=== PATIENT | male | born 1980 | race Caucasian/White ===

== ENCOUNTER 2018-04-07 18:10 | Inpatient (IN) | payer OTHER ==
[~2018-04-07] VITALS: Ht 182.9 cm; Wt 92.7 kg
[2018-04-07 18:18] VITALS: BP 149/106
--- NOTE | 2018-04-07 18:27 | NUR ---
BUNNY BARNETT, PLACED IN ROOM 1, REPORTS GIVEN TO CAROLYN JOYCE
--- NOTE | 2018-04-07 18:30 | NUR ---
PATIENT BIBA FROM HOME WITH SOB, anxiety. ST at scene. admits to taking 1.75ml vodka. also with c/o intermittent substernal chest pain 7/10. sl inserted 1L ns infusing. Asa 325mg given en route, btg 1 sl given, pain decrarsed from 7 to 5. 12 lead done, st , no ectopy. DENIES N/V/D; SKIN IS PINK/WARM/DRY; AAOX4; LUNGS CLEAR BL; ST NOTED, PT DENIES ANY FEVER, PATIENT STATES PAIN OF 5/10 AT THIS TIME; VSS; PATIENT POSITIONED FOR COMFORT; HOB ELEVATED; BEDRAILS UP X2; BED DOWN. ER MD MADE AWARE OF PT STATUS.
--- NOTE | 2018-04-07 18:42 | NUR ---
PT C/O CHEST PAIN IS BACK, 03/25, DR. BOUCHER MADE AWARE.
[2018-04-07] MEDS ORDERED: DICYCLOMINE HCL LIQUID 20 MG, ALUMINUM HYD/MAG/SIMETHICONE 30 ML, LIDOCAINE VISCOUS 2% ... PO ONE ×3 (19:05)
[2018-04-07] MEDS ORDERED: NACL 0.9% 2,000 ML IV ONE (19:05)
[2018-04-07] MEDS ORDERED: LORazepam 2 MG/ML VIAL IVP ONE (19:05)
--- NOTE | 2018-04-07 19:09 | NUR ---
REPORT GIVEN TO ELEMENTARY SECRETARY NURSE FOR CONTINUE OF CARE.
--- NOTE | 2018-04-07 19:10 | NUR ---
RECEIVED REPORT FROM AM NURSE. PT SITTING ON L SIDE IN BED, PT REPORTS 7/10 PAIN AT THIS TIME, RELIEVED BY POSITIONING. WILL ADMINISTER MEDS AT ORDERED WITH EDUCATION.
--- NOTE | 2018-04-07 19:10 | NUR ---
Yane newsome in [facility] - 04/07/18 at 2023 by SAVANA MALU
[2018-04-07 19:49] LABS: HEMATOCRIT 37.9 % (36-52); HEMOGLOBIN 12.5 g/dL (12.0-18.0); MEAN CORPUSCULAR HEMOGLOBIN 30 pg (27-31); MEAN CORPUSCULAR VOLUME 90.7 fL (80-94); RED BLOOD CELL COUNT(AUTO) 4.18 MIL/uL (4.20-6.10); WHITE BLOOD COUNT (AUTO) 4.6 K/uL (4.8-10.8)
[2018-04-07 19:50] LABS: BASOPHILS # (AUTO) 0.3 K/uL (0.00-0.22); LYMPHOCYTES # (AUTO) 0.8 K/uL (2.0-11.5); MEAN CORPUSCULAR HGB CONC 33 g/dL (33-37); MONOCYTES # (AUTO) 0.7 K/uL (0.8-1.0); NEUTROPHILS # (AUTO) 2.8 K/uL (1.8-7.7); PLATELET COUNT (AUTO) 187 K/uL (140-450); RED CELL DISTRIBUTION WIDTH 13.8 % (11.6-13.7)
--- NOTE | 2018-04-07 20:10 | NUR ---
PT RESTING IN BED, VSS, PT REPORTS 3/10 PAIN AT THIS TIME, ALL NEEDS MET AT THIS TIME.
[2018-04-07] MEDS ORDERED: KETOROLAC 30 MG/ML VIAL IVP ONE (20:55)
[2018-04-07 21:08] LABS: CARBON DIOXIDE 27.4 mmol/L (21-32)
[2018-04-07 21:09] LABS: CREATININE 0.7 mg/dL (0.7-1.3); TOTAL BILIRUBIN 0.9 mg/dL (0.0-1.0)
[2018-04-07 21:10] LABS: ALBUMIN 3.6 g/dL (3.4-5.0)
[2018-04-07 21:12] LABS: ANION GAP 13.5 (8-16); POTASSIUM 2.9 mmol/L (3.5-5.1)
[2018-04-07] MEDS ORDERED: KCL 20 MEQ/WATER INJ PREMIX 100 ML IV ONE (21:40)
[2018-04-07 21:47] LABS: CREATINE KINASE MB 0.6 ng/mL (0-3.6)
[2018-04-07] MEDS ORDERED: LORazepam 2 MG/ML VIAL IVP PRN (21:50)
[2018-04-07] MEDS: POTASSIUM CHL 20MEQ/D5-NS 1,000 ML IV SCH (22:00)
--- NOTE | 2018-04-07 22:00 | NUR ---
PT GIVEN SANDWICH AND SNACKS, OK PER MD
[2018-04-07] MEDS ORDERED: LISI2.5T12 PO (22:22)
--- NOTE | 2018-04-07 22:41 | NUR ---
PT ARRIVED ON UNIT VIA GURNEY WITH 2 ER NURSES. PT IN STABLE CONDITION. PT IS A/O X4. PT ON RA. SKIN IS INTACT. IV ACCESS IN R HAND 20G. IV IS PATENT AND INTACT. POTASSIUM CURRENTLY INFUSING. PT C/O OF SOME CHEST PAIN BUT DOES NOT REQUEST ANY PAIN MEDICATION AT THIS TIME. VS ARE WITHIN NORMAL LIMITS. ORIENTATED PT TO ROOM AND USE OF CALL LIGHT. BED IS LOCKED, LOWEST POSITION AND SIDE RAILS UP X2. WILL CONTINUE TO MONITOR PT.
--- NOTE | 2018-04-07 22:48 | NUR ---
Patient will be admitted to care of DR. DEXTER. Admited to TELE. Will go to room 105A. Belongings list completed. Report to CAROLYN STOLL AT BEDSIDE.
[2018-04-07] MEDS: ONDANSETRON 4 MG/2 ML VIAL IVP PRN (23:36)
--- NOTE | 2018-04-07 23:36 | NUR ---
PT C/O OF NAUSEA, ZOFRAN ADMINISTERED PER MD ORDER.
[2018-04-07] MEDS: MORPHINE SULFATE 2 MG/ML SYR IVP PRN (23:37)
[2018-04-08] VITALS: BP 137/90
[2018-04-08 00:10] LABS: BARBITURATE, URINE NEGATIVE ng/ml (NEG <=200); BENZODIAZEPINE, URINE NEGATIVE ng/mL (NEG <=200); CANNABINOID, URINE NEGATIVE ng/mL (NEG <=50); COCAINE, URINE NEGATIVE ng/mL (NEG <=300); OPIATE, URINE NEGATIVE ng/mL (NEG <=2000); PHENCYCLIDINE SCREEN,URINE NEGATIVE ng/mL (NEG <=25)
[2018-04-08] MEDS ORDERED: THIAMINE 200 MG/2 ML VIAL ONE ×2 (00:40→00:54)
[2018-04-08] MEDS ORDERED: MULTIVITAMIN-12 10 ML VIAL IV ONE ×2 (00:40→00:54)
[2018-04-08] MEDS ORDERED: FOLIC ACID 5 MG/ML SYR ONE (00:54)
[2018-04-08] MEDS ORDERED: MAG SULF 2000 MG/WATER PREMIX 50 ML IV ONE ×2 (00:59→11:25)
[2018-04-08] MEDS: MULTIVITAMIN-12 10 ML, THIAMINE 100 MG, MAGNESIUM SULFATE 50% 2,000 MG, FOLIC ACID 1 MG... IV SCH ×10 (01:28→23:57)
--- NOTE | 2018-04-08 01:28 | NUR ---
BANANA BAG STARTED AT 100ML/HR WILL BE COMPLETED AT 1128. PT TOLERATING WELL. WILL CONTINUE TO MONITOR.
[2018-04-08] MEDS: ACETAMINOPHEN 325 MG TAB PO PRN ×2 (01:45→16:05)
[2018-04-08] MEDS ORDERED: ALUMINUM HYD/MAG/SIMETHICONE 30 ML UDC PO PRN (02:20)
--- NOTE | 2018-04-08 02:35 | NUR ---
PT C/O HEARTBURN. MAALOX ADMINISTERED PER MD ORDER.
[2018-04-08 04:00] VITALS: BP 133/88
[2018-04-08] MEDS: ONDANSETRON 4 MG/2 ML VIAL IVP PRN ×4 (04:04→20:41)
--- NOTE | 2018-04-08 04:05 | NUR ---
PT C/O ANXIETY. ATIVAN GIVEN PER MD ORDER.
--- NOTE | 2018-04-08 05:12 | NUR ---
PT ASLEEP IN BED. NO S/SX OF DISTRESS. WILL CONTINUE TO MONITOR.
[2018-04-08 07:14] LABS: ALBUMIN 3.4 g/dL (3.4-5.0); ANION GAP 11.8 (8-16); CARBON DIOXIDE 27.1 mmol/L (21-32); CREATININE 0.6 mg/dL (0.7-1.3); TOTAL BILIRUBIN 0.8 mg/dL (0.0-1.0)
[2018-04-08 07:22] LABS: CREATINE KINASE MB 1.4 ng/mL (0-3.6)
--- NOTE | 2018-04-08 07:28 | NUR ---
ENDORSED PT TO DAY SHIFT NURSE FOR CONTINUITY OF CARE. PT IN STABLE CONDITION.
[2018-04-08 07:34] LABS: RED BLOOD CELL COUNT(AUTO) 3.72 MIL/uL (4.20-6.10); WHITE BLOOD COUNT (AUTO) 3.8 K/uL (4.8-10.8)
[2018-04-08 07:35] LABS: HEMATOCRIT 33.7 % (36-52); HEMOGLOBIN 11.4 g/dL (12.0-18.0); MEAN CORPUSCULAR HEMOGLOBIN 31 pg (27-31); MEAN CORPUSCULAR HGB CONC 34 g/dL (33-37); MEAN CORPUSCULAR VOLUME 90.5 fL (80-94); PLATELET COUNT (AUTO) 147 K/uL (140-450); RED CELL DISTRIBUTION WIDTH 13.5 % (11.6-13.7)
[2018-04-08 07:38] LABS: POTASSIUM 2.9 mmol/L (3.5-5.1)
--- NOTE | 2018-04-08 07:58 | NUR ---
LAB CALLED REGARDING CRITICAL VALUE OF POTASSIUM 2.9. PAGED DR DEXTER. WAITING FOR HIS CALL.
[2018-04-08 07:59] VITALS: BP 140/94
[2018-04-08] MEDS: POTASSIUM CHL 20MEQ/D5-NS 1,000 ML IV SCH ×3 (08:00→18:00)
--- NOTE | 2018-04-08 08:05 | NUR ---
DR DEXTER CALLED BACK. ASKED IF PT IS VOMITING. ORDERED POTASSIUM 40 MG TO BE GIVEN PO AND AFTER 4 HRS AGAIN. ASKED TO DRAW BMP IN 6 HRS AGAIN. READ BACK ORDER TO DOCTOR. WILL CONTINUE TO MONITOR PT.
[2018-04-08] MEDS: FAMOTIDINE 20 MG/2 ML VIAL IV SCH ×2 (08:34→20:42)
[2018-04-08] MEDS: ASPIRIN 81 MG TAB.CHEW PO SCH (08:34)
[2018-04-08] MEDS: POTASSIUM CHLORIDE 10 MEQ TABER PO SCH ×2 (08:35→13:07)
[2018-04-08] MEDS: MORPHINE SULFATE 2 MG/ML SYR IVP PRN ×3 (08:35→20:41)
[2018-04-08] MEDS: ENOXAPARIN 40 MG/0.4 ML SYR SUBQ SCH (08:39)
--- NOTE | 2018-04-08 08:49 | NUR ---
ADMINISTERED MEDS ORDERED TO PT. COMPLAINING OF PAIN . ADMINISTERED MORPHINE. POTASSIUM 40 MEQ GIVEN ORALLY. PT TOLERATED WELL. PT LYING ON HIS LFT SIDE. STATES THAT HIS PAIN INCREASES WHILE LYING ON HIS BACK. REFUSED HIS BREAKFAST. WILL CONTINUE TO MONITOR PT.
[2018-04-08 09:59] LABS: LYMPHOCYTES % (MANUAL) 41 % (20-46); MONOCYTES % (MANUAL) 18 % (5-12)
--- NOTE | 2018-04-08 10:30 | NUR ---
PATIENT HAS BEEN SCREENED AND CATEGORIZED LOW NUTRITION RISK. PATIENT WILL BE SEEN WITHIN 7 DAYS OF ADMISSION. 04/14/[address]
[2018-04-08 12:00] VITALS: BP 137/75
[2018-04-08] MEDS: MAGNESIUM SULFATE 1GM in DEXTROSE 5% 100 ML PREMIX IV SCH ×2 (12:22→13:34)
--- NOTE | 2018-04-08 12:42 | NUR ---
CM NOTE INITIAL REVIEW FAXED TO [facility] [phone] ANDRÉS # [phone]
[2018-04-08 12:49] LABS: ANION GAP 13.2 (8-16); CREATININE 0.7 mg/dL (0.7-1.3); POTASSIUM 3.2 mmol/L (3.5-5.1)
--- NOTE | 2018-04-08 13:41 | NUR ---
ADMINISTERED SECOND BAG OF MAGNESIUM SULFATE TO PT. WILL CONTINUE TO MONITOR PT.
[2018-04-08 14:00] LABS: CREATINE KINASE MB 0.9 ng/mL (0-3.6)
[2018-04-08 16:00] VITALS: BP 144/89
--- NOTE | 2018-04-08 17:40 | NUR ---
PHARMACY CALLED REGARDING BANANA BAG FOR PT. WANTED TO KNOW IF BABAN BAG WAS FOR ONE TIME ONLY. PAGED DR SINGH. CALLED BACK. PER DR RONQUILLO, ITS EVERY 24 HRS. PHARMACY MADE AWARE.
[2018-04-08 17:51] LABS: ANION GAP 13.3 (8-16); CREATININE 0.7 mg/dL (0.7-1.3); POTASSIUM 3.3 mmol/L (3.5-5.1)
[2018-04-08 17:57] LABS: MAGNESIUM 1.5 mg/dL (1.8-2.4); TOTAL BILIRUBIN 2.7 mg/dL (0.0-1.0)
--- NOTE | 2018-04-08 18:15 | NUR ---
PT TOOK HIS IV OUT. SENIOR SPEECH PATHOLOGIST CALLED . WILL INSERT IV ON THE PT.
--- NOTE | 2018-04-08 19:20 | NUR ---
INSERTED IV 20 G ON PT LFT FA. IV INTACT AND INFUSING WELL. ENDORSED PT TO PM NURSE. PT IN STABLE CONDITION.
--- NOTE | 2018-04-08 19:25 | NUR ---
RECEIVED REPORT FROM DAY SHIFT RN, PATIENT RESTING IN BED, AWAKE ALERT ORIENTED X3, NO S/S OF DISTRESS NOTED, STATED SHORTNESS OF BREATH WHEN MOVING AROUND. O2SAT 96%, ROOM AIR, DENIES SHORTNESS OF BREATH WHEN RESTING. IV PATENT AND INTACT, CALL LIGHT WITHIN REACH, SAFETY MEASURE ENSURED, WILL CONTINUE TO MONITOR.
[2018-04-08 20:00] VITALS: BP 148/87
--- NOTE | 2018-04-08 20:51 | NUR ---
DUE MEDICATION GIVEN, PATIENT TOLERATED WELL. PAIN 6/10, BP 148/87, HR 72, MORPHINE GIVEN ORDERED, WILL CONTINUE TO MONITOR.
--- NOTE | 2018-04-08 22:25 | NUR ---
PATIENT WAS SLEEPING, EASY TO AROUSE, NO S/S OF DISTRESS NOTED, CALL LIGHT WITHIN REACH, SAFETY MEASURE ENSURED, WILL CONTINUE TO MONITOR.
[2018-04-09] VITALS: BP 128/79
[2018-04-09 00:25] LABS: ANION GAP 12.8 (8-16); CARBON DIOXIDE 27.6 mmol/L (21-32); CREATININE 0.8 mg/dL (0.7-1.3); POTASSIUM 3.4 mmol/L (3.5-5.1)
--- NOTE | 2018-04-09 00:30 | NUR ---
VITAL SIGNS STABLE, NO S/S OF DISTRESS NOTED, CALL LIGHT WITHIN REACH, SAFETY MEASURE ENSURED, WILL CONTINUE TO MONITOR.
--- NOTE | 2018-04-09 02:39 | NUR ---
NO CHANGE IN CONDITION, PATIENT WAS SLEEPING, BUT EASY TO AROUSE. NO S/S OF DISTRESS NOTED, WILL CONTINUE TO MONITOR.
[2018-04-09] MEDS: POTASSIUM CHL 20MEQ/D5-NS 1,000 ML IV SCH (04:00)
[2018-04-09 04:04] VITALS: BP 150/91
--- NOTE | 2018-04-09 04:27 | NUR ---
PATIENT SAID," THE OLD LADY HAS BEEN SCREAMING THE ENTIRE NIGHT." OFFERED CLOSING THE DOOR, BUT PATIENT REFUSED AND SAID," THAT'S OKAY." CALL LIGHT WITHIN REACH, SAFETY MEASURE ENSURED, WILL CONTINUE TO MONITOR.
[2018-04-09 06:46] LABS: CARBON DIOXIDE 28.5 mmol/L (21-32); CREATININE 0.6 mg/dL (0.7-1.3); POTASSIUM 3.5 mmol/L (3.5-5.1)
--- NOTE | 2018-04-09 07:25 | NUR ---
ENDORSED PLAN OF CARE TO DAY SHIFT RN, PATIENT IS IN STABLE CONDITION.
--- NOTE | 2018-04-09 07:26 | NUR ---
RECEIVED REPORT FROM PM NURSE AT THE BEDSIDE. PT LYING ON BED. COMPLAINING OF BEING NAUSEATED WHILE HE WOKE UP. IV ON LFT FA, 22G. IV INFUSING WELL.UPDATED BOARD. ALL SAFETY MEASURE IN PLACE. WILL CONTINUE TO MONITOR PT.
[2018-04-09 08:00] VITALS: BP 146/91
[2018-04-09] MEDS: ONDANSETRON 4 MG/2 ML VIAL IVP PRN (08:24)
[2018-04-09] MEDS: ASPIRIN 81 MG TAB.CHEW PO SCH (08:24)
[2018-04-09] MEDS: MORPHINE SULFATE 2 MG/ML SYR IVP PRN (08:25)
[2018-04-09] MEDS: FAMOTIDINE 20 MG/2 ML VIAL IV SCH (08:25)
[2018-04-09] MEDS: ENOXAPARIN 40 MG/0.4 ML SYR SUBQ SCH (08:26)
--- NOTE | 2018-04-09 08:37 | NUR ---
CHECKED ON P[T. COMPLAINING OF PAIN AND BRITO. ADMINISTERED MEDS ORDERED. TOLERATED WELL. BANANA BAG INFUSING WELL. NO SIGN OF DISTRESS. ALL SAFETY MEASURE IN PLACE. WILL [id number] TO MONITOR PT.
[2018-04-09] MEDS ORDERED: ONDANSETRON 4 MG TAB PO PRN (09:20)
[2018-04-09] MEDS ORDERED: SUCRALFATE 1 GM TAB PO SCH ×2 (09:31→13:00)
[2018-04-09 10:26] LABS: ALBUMIN 3.6 g/dL (3.4-5.0); BILIRUBIN,DIRECT 0.6 mg/dL (0.0-0.3); MAGNESIUM 1.5 mg/dL (1.8-2.4); TOTAL BILIRUBIN 2.5 mg/dL (0.0-1.0)
[2018-04-09 12:00] VITALS: BP 146/100
[2018-04-09 13:07] LABS: ANION GAP 10.3 (8-16); CREATININE 0.6 mg/dL (0.7-1.3); POTASSIUM 3.3 mmol/L (3.5-5.1)
--- NOTE | 2018-04-09 13:11 | NUR ---
ADMINISTERED MEDS ORDERED TO PT. TOLERATED WELL. NO SIGN OF DISTRESS. MISSED THE DOSE OF SURCALFATE FOR PT. WAS WITH OTHER PT WOUNDCARE AND DISCHARGING PT. PT WENT TO RESTROOM. STABLE AND AMBULATED FINE. WILL CONTINUE TO MONITOR PT.
[2018-04-09] MEDS ORDERED: PANT40EC PO (14:08)
[2018-04-09] MEDS ORDERED: SUCR1TAB56 PO (14:08)
[2018-04-09] MEDS ORDERED: ONDA4TAB4 PO (14:08)
--- NOTE | 2018-04-09 14:31 | NUR ---
INFORMED PT THAT HE IS GOING TO GET DC TODAY. WILL WORK ON HIS DC PAPER. PT TO CALL HIS RIDE TO GO HOME. PT STABLE AT THIS TIME. WILL CONTINUE TO MONITOR PT.
--- NOTE | 2018-04-09 14:48 | NUR ---
Clinical review faxed to [facility] at [phone]. Order for follow up with higher risk clinic faxed to [facility] and informed to call [phone] and spoke to Quang to arrange the appointment.
--- NOTE | 2018-04-09 15:30 | NUR ---
PT LEFT THE HOSPITAL ON OWN . UNCLE AT THE LOBBY TO RECEIVE THE PT. PT IN STABLE CONDITION AT TIME OF DISCHARGE. EXPLAINED TO PT ALL THE DISCHARGE INSTRUCTION. PT VERBALIZED UNDERSTANDING.WALKED THE PT OUT THE LOBBY. PT TOOK ALL HIS BELONGINGS WITH HIM.
--- NOTE | 2018-04-10 13:46 | NUR ---
1156 CALLED ANDRÉS ROQUE AT [facility] REGARDING PT STILL NEEDS H[facility] CLINIC APPT. PER ANDRÉS VALENTIN TRIED TO CALL PT BUT COULDN'T REACH HIM. ANDRÉS STATED PT CAN BE SEEN Saturday FIRST AT 1430 AT [facility] I INFORMED HER THAT I WOULD CONTACT PT. 1326 CALLED AND SPOKE WITH PT AND INFORMED HIM OF THE SCHEDULED APPT NEXT SAT AND TIME AND PROVIDED HIM WITH [facility] PHONE NUMBER TO CONFIRM AND GET DIRECTIONS TO OFFICE. PT STATED HE HAD JUST SPOKE WITH THE OFFICE REGARDING A QUESTION ABOUT HIS RX BUT WOULD CALL THEM BACK TO CONFIRM DR MOCK.
== END 2018-04-09 15:30 | disposition home or self-care (01) | DRG 241 ==
LOC: MED 18:10 → MTU 21:55 → OBSVTOIN 04-08 10:30
PROVIDERS: ADMIT Hospitalist; ATTEND Hospitalist
DX: K29.20 Alcoholic gastritis without bleeding (principal); M62.82 Rhabdomyolysis; E83.42 Hypomagnesemia; E83.51 Hypocalcemia; E66.01 Morbid (severe) obesity due to excess calories; F10.239 Alcohol dependence with withdrawal, unspecified; I10 Essential (primary) hypertension; F10.229 Alcohol dependence with intoxication, unspecified; E87.6 Hypokalemia; Y90.6 Blood alcohol level of 120-199 mg/100 ml; D64.9 Anemia, unspecified
CPT/HCPCS: 96361; 96365; 96375; 99285; G0378; 36415; 71045; 74018; 80048; 80053; 80076; 80305; 82550; 82553; 83690; 83735; 84484; 85025; 87081; 93005; A9153; G0482; J1650; J1885; J2060; J2270; J2405; J3411; J3475; J3480; J3490; J7030